=== PATIENT | male | born 1950 | race Caucasian/White ===

== ENCOUNTER → 2019-09-04 | Outpatient (CLI) | payer MEDICARE ==
[~2019-09-04] MED LIST: ALLO300T PO; AMLO5TAB10 PO; ATOR20TA58 PO; CHOL400T36 PO; LEVO25TA4 PO; LEVO50TA5 PO; LUTE1CAP3 PO; MILK500C PO; NAPR-695 PO; VALS80TA3 PO
== END | disposition home or self-care (01) ==
LOC: LAB 07:57
PROVIDERS: ATTEND Registered Nurse
DX: Z03.818 Encounter for observation for suspected exposure to other biological agents ruled out (principal)
CPT/HCPCS: 87635

== ENCOUNTER → 2019-09-08 | Day surgery (SDC) | payer MEDICARE ==
[~2019-09-08] MED LIST changes: +IPRATRPIUM/ALBUTEROL 0.5/2.5MG 3 ML NEBU. NEB PRN; +IV RINGERS SOLUTION,LACTATED 1,000 ML IV SCH; +ONDANSETRON PF 4 MG/2 ML VIAL. IV PRN; +PROPOFOL 10,000 MCG/ML (20ML) VIAL IV ONE
[2019-09-08 11:38] VITALS: BP 143/86
== END | disposition home or self-care (01) ==
LOC: SURG 08:09
PROVIDERS: ATTEND Emergency Medicine
DX: R19.5 Other fecal abnormalities (principal); K64.9 Unspecified hemorrhoids; K63.89 Other specified diseases of intestine; Z79.899 Other long term (current) drug therapy; Z98.890 Other specified postprocedural states; Z98.0 Intestinal bypass and anastomosis status; Z91.041 Radiographic dye allergy status
CPT/HCPCS: 45378; J2704; J7120